=== PATIENT | male | born 1945 | race Caucasian/White ===

== ENCOUNTER 2017-03-31 18:35 | Emergency (ER) | payer MEDICARE ==
[2017-03-31] MEDS ORDERED: ALTEPLASE 100 MG/100 ML VIAL IV ONE (18:59)
--- NOTE | 2017-03-31 19:02 | CT REPORT ---
HISTORY: Possible stroke. COMPARISON: None available. TECHNIQUE: Axial non-contrast images obtained from skull vertex through foramen magnum. Dose reduction technique was utilized. FINDINGS: There is evidence for high posterior parietal craniectomy defect. No calvarial fracture. Clear parana micah sinuses. Clear mastoid air cells. Probable dural thickening at the craniectomy site. A small amount of extra-axial hemorrhage cannot be excluded. No intra-axial mass or intra-axial hemorrhage identified. Normal ventricular size and position. No midline shift. Within the limitations of study no definite evidence for acute or evolving large vessel cerebrovascul ar accident. IMPRESSION: Posterior parietal craniectomy defect with postoperative change at the operative site. No evidence for intra-axial mass or hemorrhage. No definite evidence for acute or evolving stroke. Consider MRI for further evaluation. Results called to the emergency department. Final Electronic Signature: This report was electronically signed by Dennis Rowe MD, FACR on 7:00 PM. roby /
[2017-03-31 19:27] LABS: BASOPHILS 0.5 % (0.0-2.0); EOSINOPHILS 1.5 % (0.0-6.0); EOSINOPHILS# 0.1 X 10^3uL (0.0-0.4); HEMATOCRIT 43.5 % (42.0-54.0); LYMPHOCYTES 21.6 % (20.0-40.0); MEAN CELL VOLUME 97.3 fL (80.0-100.0); MEAN CORPUS. HGB CONCENTRATION 34.5 g/dL (32.0-36.0); MEAN CORPUSCULAR HEMOGLOBIN 33.6 pg (29.0-35.0); MEAN PLATELET VOLUME 7.9 fL (7.4-10.4); MONOCYTES 8.4 % (2.0-10.0); MONOCYTES# 0.8 X 10^3uL (0.2-1.0); NEUTROPHILS# 6.2 X 10^3uL (2.6-6.7); PLATELET COUNT 221 X 10^3uL (130-440); RED BLOOD COUNT 4.47 X 10^6uL (4.20-6.10); WHITE BLOOD COUNT 9.1 X 10^3uL (3.9-10.7)
[2017-03-31 19:32] LABS: BLOOD UREA NITROGEN 8 mg/dL (9-20); CALCIUM 9.5 mg/dL (8.4-10.2); CHLORIDE 101 mmol/L (98-107); CREATININE 0.8 mg/dL (0.7-1.3); EST GLOMERULAR FILTRATION RATE > 60 mL/min; SODIUM 141 mmol/L (137-145)
[2017-03-31 19:33] LABS: GLUCOSE 267 mg/dL (70-100)
--- NOTE | 2017-03-31 19:51 | ER NURSING DOCUMENTATION ---
Nurse's Notes [facility] Name:Alcides Slaughter Age:71 yrs Sex:Male :1945 Arrival Date:03/31/2017 Time:18:35 BedTrauma-B Private MD:Haile Rudolph Diagnosis:Aphasia from CVA Presentation: 03/31 18:41 Presenting complaint: Patient states: AROUND 5:30 PATIENT STARTED HAVING RIGHT ARM lc WEAKNESS THEN SPEECH PROBLEMS. DROVE HIM ALL THE WAY UP TO [facility]. Transition of care: patient was not received from another setting of care. Time Last Known Well for patient was 5:30. An acute neurological deficit is present. 18:41 Acuity: SHAYLA 2 lc 18:41 Method Of Arrival: Private Vehicle Triage Assessment: 19:11 The onset of the patients symptoms was less than three hours ago. General: Appears well lc groomed, Behavior is anxious, cooperative. Pain: Denies pain. Neuro: Level of Consciousness is awake, alert, Oriented to Reports. Cardiovascular: Rhythm is sinus rhythm. Derm: Skin is pink, warm & dry. Stroke Activation: Symptom onset < 3 hours Physician: ED Attending; Name: CATRACHO; Notified At: 18:35; Arrived At: 18:40 Physician: sample worker; Name: QUAN; Notified At: 18:35; Arrived At: 18:38 Physician: Personalized Living Manager Nurse; Name: LEROY; Notified At: 18:35; Arrived At: 18:45 Physician: [not used]; Name: ; Notified At: ; Arrived At: Physician: [not used]; Name: ; Notified At: ; Arrived At: Historical: - Allergies: No known drug Allergies; - Home Meds: 1. Glucophage Oral 2. Glucotrol Oral 3. CHOLESTEROL MED - PMHx: Diabetes - NIDDM; - PSHx: HERNIA REPAIR; CRANIOTOMY; - Tetanus: < 10 years. - Ebola Screening: : Patient negative for fever greater than or equal to 101.5 degrees Fahrenheit, and additional compatible Ebola Virus Disease symptoms. Patient denies exposure to infectious person. Patient denies travel to an Ebola-affected area in the 21 days before illness onset. . - Immunization history: Flu Vaccine >1 year. - Social history: Smoking status: Patient states was never smoker of tobacco. Screenin:21 Infectious Disease Risk None. Abuse screen: Denies threats or abuse. Denies injuries lc from another. Abuse screen: Denies threats or abuse. Nutritional screening: No deficits noted. Assessment: 18:40 Neuro: Level of Consciousness is awake, alert, Oriented to PROBABLY, UNABLE TO SPEAK. lc Shoe Handler are weak on right Gait is ataxic, Speech with expressive aphasia noted, Facial symmetry appears normal, Pupils are PERRLA. 19:22 Reassessment: CT DONE IMMEDIATELY, IV STARTED, TPA MIXED PER MD ORDER, NOT GIVEN AFTER lc RADIOLOGIST REPORT, FLIGHTS HERE, LABS SENT. NO CHANGE IN PTS RIGHT ARM WEAKNESS AND ABILITY TO SPEAK. AT BEDSIDE, . Vital Signs: 18:37 BP 182 / 96 (auto/); lc 18:37 Pulse Ox 91% ; lc 18:54 BP 170 / 85 (auto/); lc 19:00 BP 170 / 86 (auto/); lc 19:02 Pulse 81 MON; Resp 19; Pulse Ox 94% ; lc 19:07 Pulse 81 MON; Resp 18; Pulse Ox 94% ; lc 19:10 BP 153 / 80 (auto/); lc 19:12 Pulse 83 MON; Resp 23; Pulse Ox 94% ; lc 19:24 Temp 98; lc Ca Coma Score: 19:44 Eye Response: spontaneous(4). Verbal Response: confused(4). Motor Response: obeys cd commands(6). Total: 14. NIH Stroke Scale Scores: 18:41 NIHSS Score: 15 lc ED Course: 18:36 Patient arrived in ED. ds 18:36 Haile Rudolph MD is Private Physician. ds 18:36 Ming Will MD is Attending Physician. jm 18:41 Autumn Ríos, EVANGELINA is Primary Nurse. 18:45 Labs drawn. (by ED staff). Sent per order to lab. Inserted peripheral IV: 20 gauge in lc left antecubital area and blood collected. 18:49 CAT SCAN; HEAD W/O CON 77000 In Process Unspecified. EDMS 18:57 CAT SCAN; HEAD W/O CON 72239 Sent. jeanmarie 19:00 Patient moved back from CT. jeanmarie 19:00 EKG done. (by ED staff). Reviewed by Jeremi Rodriguez MD. 19:00 EKG done. 19:06 Triage completed. 19:21 Valuables Remains with patient Patient has correct armband on for positive lc identification. Placed in gown. Bed in low position. Call light in reach. Side rails up X2. Adult w/ patient. resident caregiver on. Pulse ox on. NIBP on. 19:22 Attending Physician role handed off by Ming Will MD cd 19:22 Jeremi Rodriguez MD is Attending Physician. cd 19:52 EKG attached 23:08 Other attached Administered Medications: No medications were administered Point of Care Testing: Blood Glucose: 18:45 Blood Glucose: 265 mg/dL; Ranges: Outcome: 19:27 ER care complete, transfer ordered by . cd 19:39 Transferred: Patient will be transferred to: [facility]. Facility Acceptance Time: March 31, 2017 at 19:00 Patient's face sheet was faxed to accepting facility. Face Sheet included patient's name, address, age, gender, contact information and insurance information. Patient will be transported by: [facility] Helicopter. Report called to: MELISSA HUTCHINSON Nurse and Physician Charting and Notes were sent to Accepting Facility. All tests and/or procedures with results, if applicable, were sent to accepting facility. 19:39 critical 19:39 Report given to MELISSA HUTCHINSON 19:39 Discharge instructions given to Instructed on need for transfer MAP GIVEN TO Demonstrated understanding of instructions. 19:39 Critical Care visit due to CVA 19:50 Patient left the ED. NIH Stroke Scale - NIH Stroke Score Date: 03/31/2017 Time: 18:41 Total Score = 15 1a. Level of Consciousness (LOC) - 0(Alert) 1b. Level of Consciousness (LOC) (Year & Age) - 2(Neither) 1c. LOC Commands (Open & Closes Eyes/[place]) - 0(Both) 2. Best Gaze (Lateral Gaze Paresis) - 1(Partial gaze palsy) 3. Visual Field Loss - 1(Partial hemianopia) 4. Facial Palsy - 0(Normal) 5a. Left Arm: Motor (10-second hold) - 0(No drift) 5b. Right Arm: Motor (10-second hold) - 4(No movement) 6a. Left Leg: Motor (5-second hold ? always test supine) - 0(No drift) 6b. Right Leg: Motor (5-second hold ? always test supine) - 0(No drift) 7. Limb Ataxia (finger/nose & heel/melendez ? test with eyes open) - 1(Present in one limb) 8. Sensory Loss (pinprick arms/legs/face) - 1(Mild to moderate loss) 9. Best Language: Aphasia (description/naming/reading) - 2(Severe aphasia) 10. Dysarthria (speech clarity ? read or repeat words) - 2(Severe) 11. Extinction and Inattention (visual/tactile/auditory/spatial/personal) - 1(Present) Initials: lc Signatures: Dispatcher [employer] EDAutumn Villela, EVANGELINA RN lc Srot, Nilsa, Reg Reg Jeremi Guerin MD MD cd Meyer, John, MD MD jm Abbott, Stacie Gregory, [facility]
--- NOTE | 2017-03-31 19:51 | ER PHYSICIAN DOCUMENTATION ---
Physician Documentation [facility] Name:Alcides Slaughter Age:71 yrs Sex:Male :1945 Arrival Date:03/31/2017 Time:18:35 BedTrauma-B Private MD:Haile Rudolph ED, Chris Disposition: 03/31 19:56 Chart complete. cd Disposition: 03/31/17 19:27 Transfer ordered to [facility]. Diagnosis is Aphasia from CVA. - Reason for transfer: Higher level of care. - Accepting physician is Dr. Lorenz, Neurologist. - Condition is Serious. - Problem is new. - Symptoms are unchanged. COBRA Form completed? Yes Transfer - Mode of Transportation Helicopter HPI: 18:45 This 71 yrs old Male presents to ER via Private Vehicle with complaints of cd S/S of Possible Stroke. 18:45 The patient's problem is reported as dysphasia, expressive aphasia, weakness, in the cd right upper extremity. Onset: The symptom(s)/episode began/occurred acutely, 1 hour(s) ago, at 17:35 PM tonight after eating out. It started as right arm weakness and snf to [place] he became Aphasic. (Expressive) His Glucose was 262 on arrival. Initial BP was 182/94 and he was in a NSR. His NIHSS was about 15, GCS = 14, He was initially a tPA candidate...but his CT of the brain revealed a previous craniotomy at age 17 because he fell on a [place] steel step....the Radiologist could not totally rule out a small bleed at the bottom of that previous scar. He required no BP medication.. Duration: This was a single incident, The episode is continuous, lasting 1 hour(s). Associated signs and symptoms: Pertinent negatives: abdominal pain, chest pain, combativeness, diaphoresis, headache, lightheadedness, nausea, seizure, shortness of breath, vomiting. Severity of symptoms: At their worst the symptoms were severe in the emergency department the symptoms are unchanged. Patient's baseline: Neuro: alert and fully oriented, Motor: no deficits, Ambulation: walks without assistance, Speech: normal, The patient has a previous history of head injury, and Craniotomy. The patient has not experienced similar symptoms in the past. Historical: - Allergies: No known drug Allergies; - Home Meds: 1. Glucophage Oral 2. Glucotrol Oral 3. CHOLESTEROL MED - PMHx: Diabetes - NIDDM; - PSHx: HERNIA REPAIR; CRANIOTOMY; - Tetanus: < 10 years. - Ebola Screening: : Patient negative for fever greater than or equal to 101.5 degrees Fahrenheit, and additional compatible Ebola Virus Disease symptoms. Patient denies exposure to infectious person. Patient denies travel to an Ebola-affected area in the 21 days before illness onset. . - Immunization history: Flu Vaccine >1 year. - Social history: Smoking status: Patient states was never smoker of tobacco. ROS: 19:43 Constitutional: Negative for chills, fever, poor PO intake. cd 19:43 Cardiovascular: Negative for chest pain, palpitations. 19:43 Respiratory: Negative for shortness of breath. 19:43 Neuro: Positive for speech changes, weakness, of the right arm, Negative for altered mental status, headache, seizure activity, visual changes. 19:43 All other systems are negative. Exam: 19:44 Head/Face: Normocephalic, atraumatic. cd Eyes: Pupils equal round and reactive to light, extra-ocular motions intact. Lids and lashes normal. Conjunctiva and sclera are non-icteric and not injected. Cornea within normal limits. Periorbital areas with no swelling, redness, or edema. ENT: Nares patent. No nasal discharge, no septal abnormalities noted. Tympanic membranes are normal and external auditory canals are clear. Oropharynx with no redness, swelling, or masses, exudates, or evidence of obstruction, uvula midline. Mucous membranes moist. Neck: Trachea midline, no thyromegaly or masses palpated, and no cervical lymphadenopathy. Supple, full range of motion without nuchal rigidity, or vertebral point tenderness. No Meningismus. Cardiovascular: Regular rate and rhythm with a normal S1 and S2. No gallops, murmurs, or rubs. Normal PMI, no JVD. No pulse deficits. Respiratory: Lungs have equal breath sounds bilaterally, clear to auscultation and percussion. No rales, rhonchi or wheezes noted. No increased work of breathing, no retractions or nasal flaring. Abdomen/GI: Soft, non-tender, with normal bowel sounds. No distension or tympany. No guarding or rebound. No evidence of tenderness throughout. Back: No spinal tenderness. No costovertebral tenderness. Full range of motion. 19:44 Skin: Warm, dry with normal turgor. Normal color with no rashes, no lesions, and no cd evidence of cellulitis. 19:44 Constitutional: The patient appears alert, awake, non-diaphoretic, non-toxic, well developed, well nourished, anxious, in obvious distress, moderately distressed. 19:44 Neuro: Orientation: unable to test, Mentation: lucid, confused, Cranial nerves: CN II- XII are normal as tested, Cerebellar function: unable to test, Motor: Flaccid Paralysis of right arm, all other extremities 5/5, Sensation: unable to test, Gait: not tested. seizure activity, is not displayed by the patient. Vital Signs: 18:37 BP 182 / 96 (auto/); lc 18:37 Pulse Ox 91% ; lc 18:54 BP 170 / 85 (auto/); lc 19:00 BP 170 / 86 (auto/); lc 19:02 Pulse 81 MON; Resp 19; Pulse Ox 94% ; lc 19:07 Pulse 81 MON; Resp 18; Pulse Ox 94% ; lc 19:10 BP 153 / 80 (auto/); lc 19:12 Pulse 83 MON; Resp 23; Pulse Ox 94% ; lc 19:24 Temp 98; lc NIH Stroke Scale Scores: 18:41 NIHSS Score: 15 lc [place] Coma Score: 19:44 Eye Response: spontaneous(4). Verbal Response: confused(4). Motor Response: obeys cd commands(6). Total: 14. MDM: 18:36 Patient medically screened. 18:45 Data interpreted: Pulse oximetry: on room air is 94 %. Interpretation: normal. cd 18:50 Differential diagnosis: CVA, TIA, paralysis. cd 19:08 Physician consultation: Dr. Gerda VELEZ was called at 19:02, was contacted at 19:05, cd regarding admission, to [facility] ED, consult, patient's condition, need to come to ED to see patient, need to evaluate the patient as soon as possible, and will see patient in ED, shortly, after a discussion of the case, a recommendation for transfer for higher level of care is made. 19:10 Data reviewed: vital signs, nurses notes, old medical records, EKG, radiologic studies, cd CT scan, and as a result, I will *Transfer Patient to [facility] ED to Dr. Lorenz's Service. 19:15 Counseling: I had a detailed discussion with the patient and/or guardian regarding: the cd historical points, exam findings, and any diagnostic results supporting the discharge/admit diagnosis, radiology results, the need to transfer to another facility, for higher level of care, [facility] does not immediately have the required specialist. ECG:. 19:52 EKG attached 23:08 Other attached 03/31 19:28 Order name: CBC AUTO DIF, MDIF/RMOR IF IND; Complete Time: 20:04 EDTN 03/31 19:56 Interpretation: Normal. 03/31 19:35 Order name: BASIC METABOLIC PANEL; Complete Time: 20:04 EDTN 03/31 19:57 Interpretation: Normal Except: GLUCOSE 267; Hyperglycemia. 03/31 19:35 Order name: PROTIME/INR; Complete Time: 20:04 [facility] 03/31 20:04 Interpretation: Normal. 03/31 18:49 Order name: CAT SCAN; HEAD W/O CON [id number]; Complete Time: 20:04 [facility] 03/31 20:04 Interpretation: Abnormal. 03/31 19:03 Order name: CAT SCAN; HEAD W/O CON [id number]; Complete Time: 19:28 EDTN 03/31 19:27 Interpretation: Abnormal: Report read. 03/31 19:07 Order name: 12-lead EKG; Complete Time: 19:25 03/31 19:07 Order name: Continuous Cardiac Monitoring; Complete Time: 19:25 03/31 19:07 Order name: I & O; Complete Time: 19:25 03/31 19:07 Order name: IV saline lock X2; Complete Time: 19:25 03/31 19:07 Order name: NIH Stroke Scale; Complete Time: 19:25 03/31 19:07 Order name: NPO; Complete Time: 19:25 03/31 19:07 Order name: Pulse Ox Continuous; Complete Time: 19:25 03/31 19:07 Order name: Stroke Team Activation [place]; Complete Time: 19:31 lc EC:01 Rate is 78 beats/min. Rhythm is regular. QRS [place] is Normal. [place] interval is normal. QRS cd interval is normal. QT interval is normal. No Q waves. T waves are Normal. No ST changes noted. Clinical impression: Normal ECG and No evidence of ischemia. Interpreted by me. Dispensed Medications: No medications were administered Point of Care Testing: Blood Glucose: 18:45 Blood Glucose: 265 mg/dL; Ranges: Critical Glucose Levels:Adult <50 mg/dl or >400 mg/dl <40 mg/dl or >180 mg/dl NIH Stroke Scale - NIH Stroke Score Date: 03/31/2017 Time: 18:41 Total Score = 15 1a. Level of Consciousness (LOC) - 0(Alert) 1b. Level of Consciousness (LOC) (Year & Age) - 2(Neither) 1c. LOC Commands (Open & Closes Eyes/Desktop Administrator) - 0(Both) 2. Best Gaze (Lateral Gaze Paresis) - 1(Partial gaze palsy) 3. Visual Field Loss - 1(Partial hemianopia) 4. Facial Palsy - 0(Normal) 5a. Left Arm: Motor (10-second hold) - 0(No drift) 5b. Right Arm: Motor (10-second hold) - 4(No movement) 6a. Left Leg: Motor (5-second hold ? always test supine) - 0(No drift) 6b. Right Leg: Motor (5-second hold ? always test supine) - 0(No drift) 7. Limb Ataxia (finger/nose & heel/melendez ? test with eyes open) - 1(Present in one limb) 8. Sensory Loss (pinprick arms/legs/face) - 1(Mild to moderate loss) 9. Best Language: Aphasia (description/naming/reading) - 2(Severe aphasia) 10. Dysarthria (speech clarity ? read or repeat words) - 2(Severe) 11. Extinction and Inattention (visual/tactile/auditory/spatial/personal) - 1(Present) Initials: Signatures: Autumn Ríos, RN RN Jeremi Porter MD MD cd Meyer, John, MD MD jm Hofsess, Rachel
== END 2017-03-31 19:51 | disposition short-term general hospital (02) ==
LOC: ER 18:35
DX: I63.9 Cerebral infarction, unspecified (principal); R29.715 NIHSS score 15; R40.2413 Glasgow coma scale score 13-15, at hospital admission; Z87.820 Personal history of traumatic brain injury; Z98.890 Other specified postprocedural states; E11.65 Type 2 diabetes mellitus with hyperglycemia; E78.00 Pure hypercholesterolemia, unspecified; Z79.899 Other long term (current) drug therapy
CPT/HCPCS: 70450; 80048; 85025; 85610; 93005; 93010; 99285; 99291; J2997